=== PATIENT | male | born 1970 | race Caucasian/White ===

== ENCOUNTER 2016-11-29 13:08 | Emergency (ER) | payer SELFPAY ==
[~2016-11-29] VITALS: Ht 185.4 cm; Wt 75.0 kg
[~2016-11-29 13:08] MED LIST: OLAN5TAB PO; RISP25P IM; RISP3 PO
[2016-11-29 13:21] VITALS: BP 138/88; PULSE 74; RESP 16; TEMP 98.2; O2SAT 98
[2016-11-29] MEDS ORDERED: ADDE20 PO (14:02)
--- NOTE | 2016-11-29 15:09 | PD ---
HPI Chief Complaint: Medication Refill Request Time Seen by Provider: 14:57 Travel History International Travel<30 days: No Contact w/Intl Traveler<30days: No Traveled to known affect area: No History of Present Illness HPI 46-year-old male presents to the emergency Department with requesting refill on his Adderall medication. He says he's been out since . He has ADHD. He denies suicidal or homicidal ideations. Denies hallucinations. Denies emergent medical collates at this time. Denies fever, chills, nausea, vomiting. Denies chest pain, shortness of breath, abdominal pain, change in stool or urine. Does not have a primary care provider in this area. No known allergies. No other modifying factors or associated signs and symptoms. History Social History Alcohol Use: No Tobacco Use: Yes (11/26 PPD) Allergies-Medications (Allergen,Severity, Reaction): Coded Allergies: No Known Allergies (Verified , 11/29/16) Reported Meds & Prescriptions Reported Meds & Active Scripts Active Risperdal Consta Inj (Risperidone) 25 Mg Inj 25 Mg IM Q14D Next dose of Risperdal Consta due on 12/17/2016. Risperdal (Risperidone) 3 Mg Tab 3 Mg PO BID 20 Days Take oral Risperdal for a total of 3 weeks and then stop. Be sure to get your next Risperdal Consta injection as ordered. Olanzapine 5 Mg Tab 5 Mg PO HS 15 Days Reported Adderall (Amphetamine-Dextroamphetamine) 20 Mg Tab 20 Mg PO BID Avoid late evening doses. Space doses at least 4 to 6 hours if more than once/day dosing. Review of Systems Except as stated in HPI: all other systems reviewed are Neg Physical Exam Narrative GENERAL: Well-nourished, well-developed male patient, in no acute distress SKIN: Warm and dry. HEAD: Atraumatic. Normocephalic. EYES: Pupils equal and round. No scleral icterus. No injection or drainage. ENT: Mucosa pink and moist. Airway patent. NECK: Trachea midline. CARDIOVASCULAR: Regular rate and rhythm. No murmur appreciated. RESPIRATORY: No accessory muscle use. Clear to auscultation. Breath sounds equal bilaterally. GASTROINTESTINAL: Abdomen soft, non-tender, nondistended. Hepatic and splenic margins not palpable. Bowel sounds are active 4 quadrants. MUSCULOSKELETAL: No obvious deformities. No clubbing. No cyanosis. No edema. NEUROLOGICAL: Awake and alert. Oriented 3. No obvious cranial nerve deficits. Motor grossly within normal limits. Normal speech. PSYCHIATRIC: Appropriate mood and affect; insight and judgment normal. Data Data Last Documented VS Vital Signs Date Time Temp Pulse Resp B/P Pulse Ox O2 Delivery O2 Flow Rate FiO2 11/29/16 13:21 98.2 74 16 138/88 98 MDM Medical Screen Exam Complete: Yes Emergency Medical Condition: No Differential Diagnosis Medications refill, medical clearance, ADHD, malingering Narrative Course Patient presents requesting refill on Adderall. Community resources provided. Vital signs are stable and the patient is stable for outpatient follow-up and treatment. The patient has no urgent or emergent medical complaints. There is no emergent or urgent medical need at this time. I instructed the patient to follow up with their primary care provider. A medical screening exam was performed: At the time of evaluation the presenting medical condition was determined not to be of an emergent nature. The patient was given the option of receiving additional care, but declined. Patient was given options for additional community resources from which to obtain care. The Patient Has Been advised to seek medical attention for their presenting complaint. The patient has been advised to return to the ER at any time if an emergent condition develops. Primary Impression: Encounter for medical screening examination Condition: Stable Lorena Chicas Nov 29, 2016 15:09
== END 2016-11-29 15:09 | disposition left against medical advice (07) ==
LOC: NEPB 13:08
DX: F90.9 Attention-deficit hyperactivity disorder, unspecified type (principal); Z76.0 Encounter for issue of repeat prescription
CPT/HCPCS: 99281